=== PATIENT | female | born 1965 | race African-American/Black ===

== ENCOUNTER 2021-01-14 13:02 | Outpatient (CLI) | payer OTHER, SELFPAY | END 2021-01-14 13:03 | disposition home or self-care (01) | LOC: ANHAUDIO 13:06 | PROVIDERS: PCP Family Medicine | DX: H90.41 Sensorineural hearing loss, unilateral, right ear, with unrestricted hearing on the contralateral side (principal) | CPT/HCPCS: 92557; 92567 ==